=== PATIENT | male | born 1990 | race Caucasian/White ===

== ENCOUNTER 2017-05-12 20:53 | Emergency (ER) | payer SELFPAY ==
[~2017-05-12] VITALS: Ht 180.3 cm; Wt 66.0 kg
[2017-05-12 20:57] VITALS: BP 110/70; PULSE 69; RESP 20; TEMP 98.5; O2SAT 100
[2017-05-12] MEDS ORDERED: IBUP800T23 PO (21:24)
[2017-05-12] MEDS ORDERED: PENI250T PO (21:24)
--- NOTE | 2017-05-12 21:24 | PD ---
HPI Chief Complaint: Oral / Dental Pain or Problem Time Seen by Provider: 21:20 Travel History International Travel<30 days: No Contact w/Intl Traveler<30days: No Traveled to known affect area: No History of Present Illness HPI 26-year-old male presents emergency department for evaluation of right upper dental pain 7 days. Patient reports he has a decayed cracked tooth in that region. He denies fever or chills. He reports pain is constant, nonradiating, worse with eating and drinking, no eliminating factors, severity 6 out of 10. He denies any other medical complaint. PFS Past Medical History Medical History: Denies Significant Hx Diminished Hearing: No Tetanus Vaccination: > 5 Years Influenza Vaccination: No Past Surgical History Surgical History: No Previous Surgery Social History Alcohol Use: Yes (Occ.) Tobacco Use: No Substance Use: No (Denies today 05/12/17) Allergies-Medications (Allergen,Severity, Reaction): Coded Allergies: No Known Allergies (Unverified , 05/12/17) Reported Meds & Prescriptions Reported Meds & Active Scripts Active No Active Prescriptions or Reported Medications Review of Systems Except as stated in HPI: all other systems reviewed are Neg General / Constitutional: No: Fever HENT: No: Headaches Cardiovascular: No: Chest Pain or Discomfort Respiratory: No: Shortness of Breath Gastrointestinal: No: Abdominal Pain Genitourinary: No: Dysuria Physical Exam Narrative GENERAL: Well-nourished, well-developed patient. SKIN: Focused skin assessment warm/dry. HEAD: Normocephalic. EYES: No scleral icterus. No injection or drainage. MOUTH: Tooth #2 decayed and fractured with surrounding gum erythema. No definable abscess noted. NECK: Supple, trachea midline. No JVD or lymphadenopathy. CARDIOVASCULAR: Regular rate and rhythm without murmurs, gallops, or rubs. RESPIRATORY: Breath sounds equal bilaterally. No accessory muscle use. GASTROINTESTINAL: Abdomen soft, non-tender, nondistended. MUSCULOSKELETAL: No cyanosis, or edema. BACK: Nontender without obvious deformity. No CVA tenderness. Data Data Last Documented VS Vital Signs Date Time Temp Pulse Resp B/P Pulse Ox O2 Delivery O2 Flow Rate FiO2 05/12/17 20:57 98.5 69 20 110/70 100 MDM Medical Decision Making Medical Screen Exam Complete: Yes Emergency Medical Condition: Yes Differential Diagnosis Dental infection, dental caries, dental abscess Narrative Course 26 year male present emergency department for evaluation of right upper dental pain 7 days. On exam tooth #2 is decayed and fractured with surrounding gum erythema patient be treated for dental infection. Diagnosis Primary Impression: Dental infection Referrals: Dentist Scripts Ibuprofen 800 Mg [id number] Mg PO Q8H PRN (Pain/Inflammation) #30 TAB Prov:Tila Tanner 05/12/17 Penicillin V Potassium 250 Mg Mnp300 Mg PO Q6H #28 TAB Prov:Tila Tanner 05/12/17 Disposition: 01 DISCHARGE HOME Condition: Stable Tila Tanner May 12, 2017 21:24
== END 2017-05-12 21:30 | disposition home or self-care (01) ==
LOC: PHEFT 20:53
DX: K04.7 Periapical abscess without sinus (principal)
CPT/HCPCS: 99283